=== PATIENT | female | born 1945 ===

== ENCOUNTER 2016-06-01 10:11 | Day surgery (SDC) | payer MEDICARE, OTHER ==
--- NOTE | ~2016-06-01 | OP ---
Record Of Operation [facility] [address] [place]. [address] NAME: CARLOS CATHERINE : 49 STATUS : [facility] UNIT#: [id number] AGE: 71 ADM/REG DATE : 06/01/16 MR#: [id number] REPORT SERV DATE: 06/02/16 DICTATED BY: NICK HARMON II DATE: 06/02/16 REPORT STATUS : Draft TRANSCRIBED BY: MATTHEW DATE: 06/02/16 DATE OF PROCEDURE: 06/01/2016 PREOPERATIVE DIAGNOSES: 1. T12 and L1 compression fractures. 2. Thoracic and lumbar pain. POSTOPERATIVE DIAGNOSES: 1. T12 and L1 compression fractures. 2. Thoracic and lumbar pain. PROCEDURE: 1. T12 and L1 kyphoplasty. 2. Use of stereotactic guidance and fluoroscopy. SURGEON: Nick Harmon M.D. FLUIDS: Approximately 1 liter of lactated Ringer's. ESTIMATED BLOOD LOSS: 0. COMPLICATIONS: No complications. DETAILS OF THE PROCEDURES: This patient was brought to the operating room. After informed consent was obtained, general anesthesia achieved, she was placed in the prone position and the back was prepped and draped in a sterile fashion. The stereotactic guidance was then initiated with the performance of the intraoperative CT scan. Next, the large bore trocar was advanced in the T12 and L1 using stereotactic guidance. Next, the K wires were placed followed by removal of the trocars and placement of the kyphoplasty balloons. The balloons were insufflated and removed followed by placement of toothpaste consistency bone cement into the T12 and L1 vertebral bodies. No extravasation occurred. At this point, the trocars were removed followed by placement of standard dressings. The patient was extubated and transferred to PACU in stable condition. NIKI/MATTHEW Nick Harmon II, M.D. / [id number] CC: Luis Sorenson M.D.
[~2016-06-01 10:11] MED LIST: ASAB PO; COREG25 PO; D 5000 PO; DOX25 PO; FLEX PO; NORCO1 TA1 PO; NORCO1 TAB PO; PAX20 PO; PRIN5 PO; XANAX1 MG PO; ZESTRIL20 MG PO; ZYRTEC ALLGY10 MG PO
[2016-06-01 11:22] LABS: HEMATOCRIT 37.4 % (36.0-48.0); HEMOGLOBIN 12.6 g/dL (12.0-16.0)
[2016-06-01 11:34] LABS: CHLORIDE, SERUM 98 MMOL/L (96-112); CO2 (CARBON DIOXIDE) 29 MMOL/L (24-34); CREATININE 0.77 MG/DL (0.55-1.02); GFR AFRICAN AMERICAN 91 ML/MIN (>=60); GFR NON AFRICAN AMERICAN 79 ML/MIN (>=60); GLUCOSE, SERUM 99 MG/DL (60-99); SODIUM, SERUM 135 MMOL/L (135-148)
[2016-06-01 11:35] LABS: BUN (BLOOD UREA NITROGEN) 16 MG/DL (6-23); POTASSIUM, SERUM 4.7 MMOL/L (3.5-5.3)
== END 2016-06-01 18:06 | disposition home or self-care (01) ==
LOC: SDC 10:11
PROVIDERS: Orthopaedic Surgery
PROC: 0PU43JZ Supplement Thoracic Vertebra with Synthetic Substitute, Percutaneous Approach (ICD-10-PCS; 2016-06-01)
PROC: 0PS43ZZ Reposition Thoracic Vertebra, Percutaneous Approach (ICD-10-PCS; principal; 2016-06-01 12:15)
DX: S22.089A Unspecified fracture of T11-T12 vertebra, initial encounter for closed fracture (principal); I10 Essential (primary) hypertension; F41.9 Anxiety disorder, unspecified; F17.210 Nicotine dependence, cigarettes, uncomplicated; M19.90 Unspecified osteoarthritis, unspecified site; K21.9 Gastro-esophageal reflux disease without esophagitis; Z90.49 Acquired absence of other specified parts of digestive tract; Z90.710 Acquired absence of both cervix and uterus; Z79.82 Long term (current) use of aspirin; Z79.899 Other long term (current) drug therapy; Z98.890 Other specified postprocedural states
CPT/HCPCS: 80048; 85014; 85018; 93005; A9270-GY; C1726; J2250; J2270; J2405; J2710; J3010; Q9967